=== PATIENT | female | born 1960 | race Caucasian/White ===

== ENCOUNTER 2018-09-14 07:36 | Day surgery (SDC) | payer OTHER, MEDICAID ==
[~2018-09-14] VITALS: Ht 167.6 cm; Wt 124.7 kg
[~2018-09-14 07:36] MED LIST: ASPI-1718 PO; BENA20TA PO; CHOL500013 PO; CRAN450C PO; CYAN100T65 PO; IBUP-44 PO; INSU100S54 SC; LANTUS SUBQ; NAPR220T29 PO; OMEP40EC1 PO
[2018-09-14] MEDS ORDERED: LIDOCAINE 2% 100 MG/5 ML UJET TP ONE (08:57)
[2018-09-14] MEDS ORDERED: fentaNYL 0.05 MG/ML VIAL ONE (08:57)
[2018-09-14] MEDS ORDERED: fentaNYL 0.05 MG/ML VIAL IVP ONE (09:08)
== END 2018-09-14 10:30 | disposition home or self-care (01) ==
LOC: MOR 07:36 → MMU 07:43 → MOR 10:30
PROVIDERS: ATTEND Internal Medicine Gastroenterology
DX: Z12.11 Encounter for screening for malignant neoplasm of colon (principal); K57.30 Diverticulosis of large intestine without perforation or abscess without bleeding; K64.8 Other hemorrhoids; I10 Essential (primary) hypertension; E11.9 Type 2 diabetes mellitus without complications; Z90.49 Acquired absence of other specified parts of digestive tract; Z98.890 Other specified postprocedural states
CPT/HCPCS: 45378; J3010

== ENCOUNTER 2020-03-09 16:27 | Emergency (ER) | payer MEDICAID, OTHER ==
[~2020-03-09] VITALS: Ht 167.6 cm; Wt 142.9 kg
[~2020-03-09 16:27] MED LIST changes: -ASPI-1718 PO; +ASPI-1822 PO; -CYAN100T65 PO; -OMEP40EC1 PO; +OMEP40EC24 PO; +VITB12 PO
[2020-03-09 16:48] VITALS: BP 179/71
[2020-03-09 17:51] VITALS: BP 164/73
--- NOTE | 2020-03-09 17:53 | NUR ---
Patient discharged with v/s stable. Written and verbal after care instructions given and explained. Patient alert, oriented and verbalized understanding of instructions. Ambulatory with steady gait. All questions addressed prior to discharge. ID band removed. Patient advised to follow up with PMD. Rx of NYSTATIN, KEFLEX given. Patient educated on indication of medication including possible reaction and side effects. Opportunity to ask questions provided and answered.
== END 2020-03-09 17:53 | disposition home or self-care (01) ==
LOC: MED 16:27
DX: B37.49 Other urogenital candidiasis (principal); E11.9 Type 2 diabetes mellitus without complications; I10 Essential (primary) hypertension; Z88.5 Allergy status to narcotic agent; Z88.6 Allergy status to analgesic agent; Z88.2 Allergy status to sulfonamides; Z88.8 Allergy status to other drugs, medicaments and biological substances; Z79.899 Other long term (current) drug therapy
CPT/HCPCS: 99283